=== PATIENT | male | born 1960 | race Caucasian/White ===

== ENCOUNTER 2020-01-08 15:41 | Emergency (ER) | payer BC, SELFPAY ==
[2020-01-08 15:43] VITALS: BP 152/88; PULSE 71; RESP 20; TEMP 35.8; O2SAT 100
--- NOTE | 2020-01-08 16:02 | PC.NURSE ---
RN at bedside. Wounds cleaned with normal saline and gauze at this time. Awaiting ERP to see pt prior to placing any type of dressing.
--- NOTE | 2020-01-08 16:17 | PC.NURSE ---
LIZ Fisher at bedside for assessment.
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
[2020-01-08 17:34] VITALS: BP 146/97; PULSE 61; RESP 20; TEMP 37.1; O2SAT 99
== END 2020-01-08 17:36 | disposition home or self-care (01) ==
PROVIDERS: Emergency Provider Emergency Medicine; PCP Internal Medicine
DX: S01.01XA Laceration without foreign body of scalp, initial encounter (principal); S50.312A Abrasion of left elbow, initial encounter; S80.212A Abrasion, left knee, initial encounter; S40.212A Abrasion of left shoulder, initial encounter; V11.4XXA Pedal cycle driver injured in collision with other pedal cycle in traffic accident, initial encounter
CPT/HCPCS: 12001; 99282

== ENCOUNTER 2020-10-11 10:15 | Outpatient (CLI) | payer BC, SELFPAY ==
--- NOTE | ~2020-10-11 | XR_ITS ---
EXAMINATION: XR_CERV2-3V_CR EXAM DATE: 10/11/2020 10:31 INDICATION: Left neck posterior pain. Surgery in 2015. TECHNIQUE: Cervical spine frontal, lateral, lateral swimmers, and open-mouth odontoid projections. There is no prior study for comparison. FINDINGS: Anterior and interbody fusion C5-7. The other disc heights are maintained. No hardware fra cture or evidence of subsidence. The vertebral bodies are aligned in the AP dimension. No evidence of moderate cervical facet arthropathy and probably mild to moderate uncovertebral joint arthropathy. T he odontoid process is intact. The lateral masses of C1 line up with C2. Prevertebral soft tissue an d pre-dens space are within normal limits. Azygos fissure. IMPRESSION: 1. Mild to moderate cervical arthropathy. 2. Intact C5-7 fusion. Reviewed, dictated and finalized at location A.
== END 2020-10-11 10:16 | disposition home or self-care (01) ==
PROVIDERS: PCP Internal Medicine; Visit Provider Internal Medicine
DX: M54.2 Cervicalgia (principal); M47.812 Spondylosis without myelopathy or radiculopathy, cervical region; Z98.1 Arthrodesis status
CPT/HCPCS: 72040

== ENCOUNTER → 2021-03-18 10:30 | Outpatient (CLI) | payer BC, SELFPAY ==
--- NOTE | ~2021-03-18 | MR_ITS ---
EXAMINATION: MR cervical spine wo con EXAM DATE: 03/18/2021 11:10 INDICATION: Cervical radiculopathy cervical radiculopathy. TECHNIQUE: Multi-sequential, multiplanar MR images of the cervical spine were obtained without contra st. Axial T2, axial T2 MERGE sequence. Sagittal T1, T2, T2 fat saturation images also obtained. Th ere is no prior study for comparison. FINDINGS: Cervical fusion anterior and interbody fusion C5-C7. Mild disc disease C4-5. The vertebral bodies are aligned in the AP dimension. The spinal cord signal intensity and intrinsic morphology is normal. Cervicomedullary junction is normal in appearance. There are no suspicious marrow signal abno rmalities. Paraspinal soft tissue is unremarkable. Level by level evaluation: C2-C3: Disc does not extend beyond the endplate margin. Uncovertebral joint arthropathy: None. Facet joint arthropathy: Moderate right, mild left. Neural foraminal stenosis: No stenosis. Central canal stenosis: No stenosis. C3-C4: There is a minimal diffuse disc bulge. Uncovertebral joint arthropathy: Mild to moderate right, mild left. Facet joint arthropathy: Severe right, moderate left. Neural foraminal stenosis: Moderate right, mild left. Central canal stenosis: No stenosis. C4-C5: There is a mild diffuse disc bulge Uncovertebral joint arthropathy: Mild to moderate bilateral. Facet joint arthropathy: Severe right, moderate to severe left. Neural foraminal stenosis: Mild to moderate right, mild left. Central canal stenosis: No stenosis. C5-C6: This level is fused. Uncovertebral joint arthropathy: Mild bilateral. Facet joint arthropathy: Moderate bilateral. Neural foraminal stenosis: Mild left. Central canal stenosis: No stenosis. C6-C7: This level is fused. Uncovertebral joint arthropathy: Mild to moderate right. Facet joint arthropathy: Mild to moderate bilateral. Neural foraminal stenosis: No stenosis. Central canal stenosis: No stenosis. C7-T1: Disc does not extend beyond the endplate margin. Uncovertebral joint arthropathy: Mild to moderate bilateral. Facet joint arthropathy: Mild bilateral. Neural foraminal stenosis: No stenosis. Central canal stenosis: No stenosis. IMPRESSION: 1. Advanced upper cervical facet arthropathy. 2. Lower cervical fusion. Reviewed, dictated and finalized at location A.
== END ==
PROVIDERS: Visit Provider Nurse Practitioner Adult Health
DX: M54.12 Radiculopathy, cervical region (principal); M12.88 Other specific arthropathies, not elsewhere classified, other specified site; Z98.1 Arthrodesis status
CPT/HCPCS: 72141

== ENCOUNTER 2021-08-19 07:34 | Outpatient (CLI) | payer BC, SELFPAY ==
--- NOTE | ~2021-08-19 | XR_ITS ---
XR hip BI 2V w AP pelvis DATE: 08/19/2021 07:55 INDICATION: Bilateral hip pain, greater on the left TECHNIQUE: AP pelvis. AP and lateral views of each hip. COMPARISON: None FINDINGS: The pubic symphysis and sacroiliac joints are intact. Hip joint spaces are symmetric and re latively preserved. No fracture, dislocation, avascular necrosis or bone destruction of either hip is detected. IMPRESSION: No significant abnormality Reviewed, dictated and finalized at location A. ION HAND IMPRESSION: No significant abnormality
== END 2021-08-19 07:35 | disposition home or self-care (01) ==
LOC: ANHIMG 07:39
PROVIDERS: PCP Internal Medicine; Visit Provider Physician Assistant
DX: M25.559 Pain in unspecified hip (principal)
CPT/HCPCS: 73521

== ENCOUNTER → 2022-02-09 07:29 | Outpatient (CLI) | payer BC, SELFPAY ==
--- NOTE | ~2022-02-09 | XR_ITS ---
EXAMINATION: XR chest 2V 02/09/2022 07:39 INDICATION: Cough. PROCEDURE: 2 view chest COMPARISON: 01/23/2006 FINDINGS: The lungs are clear. The cardiomediastinal silhouette is within normal limits. There are no pleural effusions. There is no pneumothorax suspected. IMPRESSION: 1: NO ACUTE CARDIOPULMONARY DISEASE. Reviewed, dictated and finalized at location A.
== END ==
PROVIDERS: PCP Internal Medicine; Visit Provider Internal Medicine
DX: R05.9 Cough, unspecified (principal)
CPT/HCPCS: 71046

== ENCOUNTER 2022-02-28 14:41 | Outpatient (CLI) | payer BC, SELFPAY ==
--- NOTE | 2022-02-28 14:45 | ECHO_ITS ---
Patient Info Name: Ethel Huston Age: 61 years : 1960 Gender: Male Ht: 70 in Wt: 210 lbs BSA: 2.19 m2 HR: 64 bpm BP: 149 / 94 mmHg Heart Rhythm: Sinus Rhythm Technical Quality: Fair Exam Date: 02/28/2022 3:01 PM Exam Location: [facility] Patient Status: Outpatient Admit Date: 02/28/2022 Staff Ordering Physician: Anival Henley DO Price Checker: Anita Rajput RDCS Attending Provider: Anival Henley DO Referring Physician: Kale BAILEY; Exam Type: CA echo doppler color flow Study Info Indications R53.83 - Other fatigue Complete two-dimensional, color flow and Doppler transthoracic echocardiogram is performed. Summary 1. Complete two-dimensional, color flow and Doppler transthoracic echocardiogram is performed. 2. Left ventricular chamber dimension is normal. 3. Left ventricular systolic function is normal, estimated at 60-65%. 4. The left ventricular diastolic function is normal. 5. E/e' 7 is not elevated. 6. Left atrial chamber dimension is mildly enlarged. 7. Right atrial chamber dimension is mildly enlarged. 8. The mitral valve has mildly calcified annulus. 9. No pulmonary hypertension, estimated pulmonary arterial systolic pressure is 27 mmHg. 10. Dilated inferior vena cava with >50% collapse upon inspiration consistent with elevated right atrial pressure, 10 mmHg. Left Ventricle E/e' 7 is not elevated. Left ventricular chamber dimension is normal. Left ventricular systolic function is normal, estimated at 60-65%. The left ventricular diastolic function is normal. Right Ventricle Right ventricular systolic function is normal and with normal TAPSE 1.9 cm. Right ventricular chamber dimension is normal. Left Atria Left atrial chamber dimension is mildly enlarged. Right Atria Right atrial chamber dimension is mildly enlarged. Aortic Valve The aortic valve is trileaflet. There is no aortic valve stenosis. There is no aortic valve regurgitation. Pulmonic Valve There is no pulmonic regurgitation. Mitral Valve The mitral valve has mildly calcified annulus. There is no mitral valve stenosis. There is no mitral valve regurgitation. Tricuspid Valve There is no tricuspid valve regurgitation. No pulmonary hypertension, estimated pulmonary arterial systolic pressure is 27 mmHg. Pericardium/Pleural There is no pericardial effusion. Inferior Vena Cava Dilated inferior vena cava with >50% collapse upon inspiration consistent with elevated right atrial pressure, 10 mmHg. Aorta The aortic root size at the sinus of Valsalva is normal. Left Ventricular Outflow Tract Name Value Normal LVOT 2D LVOT Diameter 2.0 cm LVOT Doppler LVOT Peak Gradient 5 mmHg LVOT Mean Gradient 2 mmHg LVOT VTI 23 cm LVOT VTI/AV VTI Ratio 0.9 LVOT Stroke Volume 74 ml LVOT CO 4.2 l/min LVOT CI 1.9 l/min/m2 Pulmonic Valve
== END 2022-02-28 14:42 | disposition home or self-care (01) ==
LOC: ANHCARD 14:42
PROVIDERS: PCP Internal Medicine; Visit Provider Internal Medicine
DX: R53.83 Other fatigue (principal); R05.9 Cough, unspecified
CPT/HCPCS: 93306

== ENCOUNTER 2023-01-05 09:06 | Outpatient (CLI) | payer BC, SELFPAY ==
--- NOTE | ~2023-01-05 | CT_ITS ---
EXAMINATION: CT brain wo/w con DATE: 01/05/2023 09:39 INDICATION: Abnormal vision, left eye TECHNIQUE: Computed tomography (CT) of the head was performed without and subsequently with 100 CC Om nipaque 350 intravenous contrast. The mA was adjusted according to patient size. Iterative reconstruc tion technique was employed. Exam dose: 1210.67 mGy-cm total exam DLP. COMPARISON: None FINDINGS: Mild cerebral and cerebellar volume loss. No intracranial mass lesion or hemorrhage or cere brovascular accident is detected. No midline shift or mass effect. There are bilateral carotid siphon internal carotid artery calcifications. There is nonspecific dimin ished attenuation of the cerebral white matter, likely due to chronic small vessel ischemic changes. No subdural or epidural hematoma is detected. Included mastoid air cells and paranasal sinuses are normally developed and aerated. No fracture or bone destruction of the cranial vault is evident. IMPRESSION: Cerebral atherosclerosis and chronic small vessel ischemic changes of cerebral white mat ter No acute intracranial abnormality Reviewed, dictated and finalized at Location A. Reviewed, dictated and finalized at location B. IMPRESSION: Cerebral atherosclerosis and chronic small vessel ischemic changes of cerebral white matter No acute intracranial abnormality
[2023-01-05 09:32] LABS: Estimated Glomerular Filt Rate > 60
== END 2023-01-05 09:07 | disposition home or self-care (01) ==
PROVIDERS: PCP Internal Medicine; Visit Provider Internal Medicine
DX: H53.452 Other localized visual field defect, left eye (principal); I67.2 Cerebral atherosclerosis
CPT/HCPCS: 70470; Q9967

== ENCOUNTER 2023-08-03 14:05 | Outpatient (CLI) | payer BC, SELFPAY ==
--- NOTE | ~2023-08-03 | XR_ITS ---
EXAM: XR knee RT 3V DATE: 08/03/2023 14:27 HISTORY: NON TRAUMA RT KNEE PAIN FOR A FEW WEEKS . COMPARISON: None available. FINDINGS: Normal mineralization. No fracture or dislocation. No lytic or blastic lesion. Minimal med ial compartment and patellofemoral compartment osteophytosis. No erosion or periosteal change. Soft t issues within normal limits. IMPRESSION: Mild bicompartmental osteoarthritis. Reviewed, dictated and finalized at location K. [employer]
== END 2023-08-03 14:06 | disposition home or self-care (01) ==
LOC: ANHIMG 14:08
PROVIDERS: PCP Internal Medicine; Visit Provider Internal Medicine
DX: M17.11 Unilateral primary osteoarthritis, right knee (principal)
CPT/HCPCS: 73562

== ENCOUNTER 2023-11-28 07:53 | Outpatient (CLI) | payer BC, SELFPAY ==
--- NOTE | ~2023-11-28 | XR_ITS ---
Lumbosacral Spine: AP and lateral views Clinical History: Pain Findings: The normal lordotic curve is maintained. There is mild anterior wedging deformity of L1, ag e-indeterminate. Suspect L5 pars interarticularis defects, with 9 mm anterolisthesis of L5 over S1. T here is moderate degenerative disc narrowing at L5-S1. There is moderate facet arthropathy at the low er lumbar spine. The sacroiliac joints are normally outlined. Impression: Suspected bilateral L5 pars interarticularis defects, with 9 mm anterolisthesis of L5 over S1. Minimal L1 compression fracture deformity, age-indeterminate. Reviewed, dictated and finalized at location . Impression: Suspected bilateral L5 pars interarticularis defects, with 9 mm anterolisthesis of L5 over S1. Minimal L1 compression fracture deformity, age-indeterminate.
== END 2023-11-28 07:54 | disposition home or self-care (01) ==
PROVIDERS: PCP Internal Medicine; Visit Provider Internal Medicine
DX: M54.9 Dorsalgia, unspecified (principal)
CPT/HCPCS: 72100

== ENCOUNTER 2023-12-03 01:10 | Day surgery (SDC) | payer BC, SELFPAY ==
[2023-11-15 13:35] VITALS: BMI 29.3
[2023-12-03 06:19] VITALS: BP 135/79; PULSE 79; RESP 20; TEMP 36.2; O2SAT 97
[2023-12-03] MEDS: LACTATED RINGERS 1,000 ML 150 ML IV CONT (06:28)
--- NOTE | 2023-12-03 06:58 | WPDANESEPPF ---
Anes - Initial Pre Proc Eval Procedure: Operation Date: 12/03/23 07:30 Proposed Procedures p Screening Colonoscopy - Wellington Hsieh MD Date/Time: 12/03/23 06:58 Surgeon: Wellington Hsieh MD Pre Op Diagnosis: neoplasm screening Patient Data Age: 63 Gender: M Height: 1.8 m Weight: 92.1 kg Last Vital Signs Temp 36.2 C L 12/03/23 06:19 Pulse 79 12/03/23 06:19 Resp 20 12/03/23 06:19 BP 135/79 12/03/23 06:19 Pulse Ox 97 12/03/23 06:19 O2 Del Method Room Air 12/03/23 06:19 Allergies Allergy/AdvReac Type Severity Reaction Status Date / Time No Known Allergies Allergy Verified 12/03/23 06:18 Home Medications Medication Instructions Recorded Confirmed Type multivitamin,fo-xyqf-gxmnpyjn 1 tablet PO DAILY 01/21/20 11/27/23 History (Complete Multivitamin tablet) omega 2-xow-esk-fish oil 1,200 mg 1 cap PO .qd 01/21/20 11/27/23 History (144 mg-216 mg) capsule (Fish Oil) cholecalciferol (vitamin D3) 25 25 mcg PO DAILY 07/29/21 11/27/23 History mcg (1,000 unit) capsule psyllium husk 0.52 gram capsule 0.52 g PO DAILY 11/28/22 11/27/23 History (Daily Fiber) Patient hx anesthesia problems: none Family hx anesthesia problems: none Results Review: All pre-operative results and documents have been reviewed as part of the pre-operative evaluation. [facility] Past Medical History Medical History Trochanteric bursitis of left hip Surgical History Surgical History History of neck surgery Family History Family History Mother Hypertension Family history of elevated blood lipids Patient's mother is in good health Asthma Father Patient's father is in good health Sibling Patient's sister is in good health Asthma Grandparent Cancer Diabetes mellitus Heart disease Other Family history of allergic disorder Social History Social History Smoking status: Never smoker Second hand tobacco smoke exposure: No Alcohol intake: current Drinks per week: 10 Substance use: never Substance use type: does not use Do You Feel Safe in your Home?: Yes Lack of Transportation: No Lack of Food: Never True Current Housing: I Have Housing Concerned About Future Housing: No Difficulty Paying Gas/Electric Bills: No Difficulty Paying for Meds: No Currently Unemployed: No Education: High School Diploma/GED Difficulty w/ Childcare or Family Care: No Living arrangements: with family Occupation/Education: occupation 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 Informed Consent: The patient's anesthetic plan and its attendant risks and benefits were discussed with the patient/family/POA. Questions were solicited and answers provided to the satisfaction of the patient/family/POA.
--- NOTE | 2023-12-03 07:21 | PM.HPGS ---
History of Present Illness History of Present Illness Consent: Risks, benefits, and alternatives have been discussed and questions answered. Patient agrees to proceed with procedure. Chief complaint: neoplasm screening Narrative: Ethel Huston II is a 63 year old male here for screening colonoscopy, last one 2012 Review of Systems Review of Systems: All systems reviewed & are unremarkable except as noted in HPI and below PMFSH Past Medical History Medical History (Updated 12/03/23 @ 07:22 by Wellington Hsieh MD) Colon cancer screening Trochanteric bursitis of left hip Surgical History Surgical History History of neck surgery Family History Family History Mother Hypertension Family history of elevated blood lipids Patient's mother is in good health Asthma Father Patient's father is in good health Sibling Patient's sister is in good health Asthma Grandparent Cancer Diabetes mellitus Heart disease Other Family history of allergic disorder Social History Social History Smoking status: Never smoker Second hand tobacco smoke exposure: No Alcohol intake: current Drinks per week: 10 Substance use: never Substance use type: does not use Do You Feel Safe in your Home?: Yes Lack of Transportation: No Lack of Food: Never True Current Housing: I Have Housing Concerned About Future Housing: No Difficulty Paying Gas/Electric Bills: No Difficulty Paying for Meds: No Currently Unemployed: No Education: High School Diploma/GED Difficulty w/ Childcare or Family Care: No Living arrangements: with family Occupation/Education: occupation 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 Spiritual care concerns: No Meds Home Medications and Allergies Home Medications Medication Instructions Recorded Confirmed Type multivitamin,qi-vszy-bhqnjkvs 1 tablet PO DAILY 01/21/20 11/27/23 History (Complete Multivitamin tablet) omega 3-vol-bhr-fish oil 1,200 mg 1 cap PO .qd 01/21/20 11/27/23 History (144 mg-216 mg) capsule (Fish Oil) cholecalciferol (vitamin D3) 25 25 mcg PO DAILY 07/29/21 11/27/23 History mcg (1,000 unit) capsule psyllium husk 0.52 gram capsule 0.52 g PO DAILY 11/28/22 11/27/23 History (Daily Fiber) Allergies Allergy/AdvReac Type Severity Reaction Status Date / Time No Known Allergies Allergy Verified 12/03/23 06:18 Vital Signs Vital Signs - 24 hr 12/03/23 06:19 Temperature 97.1 F L Pulse Rate 79 Respiratory Rate 20 Blood Pressure 135/79 Pulse Oximetry 97 Oxygen Delivery Room Air Exam Const: General: comfortable and no acute distress HENMT: Face/Nose/Sinus: Normal nares present Eyes: General: appearance normal, both eyes and all related structures Neck: Neck: no JVD Resp: Auscultation: clear to auscultation bilaterally Cardio: Rate: regular rate Rhythm: regular rhythm GI: Inspection: non-distended GI Palp: Yes Soft to palpation Skin: General skin exam: normal color Neuro: General: gait normal Speech: normal speech Extrem: General: normal to inspection Psych: Mental Status: mental status grossly normal Assessment and Plan Assessment and plan (1) Colon cancer screening: Code(s): Z12.11 - Encounter for screening for malignant neoplasm of colon Status: Acute Assessment and Plan: colonoscopy
[2023-12-03 07:43] VITALS: BP 114/76; PULSE 63; RESP 27; O2SAT 98
[2023-12-03 07:53] VITALS: BP 119/81; PULSE 61; RESP 24; O2SAT 100
[2023-12-03 08:03] VITALS: BP 120/82; PULSE 55; RESP 22; O2SAT 99
== END 2023-12-03 08:18 | disposition home or self-care (01) ==
PROVIDERS: PCP Internal Medicine; Visit Provider Internal Medicine Gastroenterology
PROC: 0DJD8ZZ Inspection of Lower Intestinal Tract, Via Natural or Artificial Opening Endoscopic (ICD-10-PCS; CPT 45378; principal; 2023-12-03 07:30)
DX: Z12.11 Encounter for screening for malignant neoplasm of colon (principal); D12.2 Benign neoplasm of ascending colon; K64.8 Other hemorrhoids
CPT/HCPCS: 45385; 88305; J2001; J2704; J7120

== ENCOUNTER 2024-10-28 08:54 | Outpatient (CLI) | payer BC, SELFPAY ==
--- NOTE | ~2024-10-28 | XR_ITS ---
Clinical Indication: Pain PA and lateral views of the chest: Comparison: 02/09/2022 Findings: The lungs are clear, without evidence of focal consolidation or pleural effusion. Cardiome diastinal silhouette is within normal limits. Bones and soft tissues are unremarkable. Impression: Normal chest. Reviewed, dictated and finalized at location . Impression: Normal chest.
--- OUTSIDE RECORDS SUMMARY | 2024-10-28 09:03 | XMS_ITS | Clinical Summary ---
Author Organization [facility] Address [address] [place] [id number] Care Team Providers Care Upper Tier Name Role Phone None, Provider Primary Care Provider Unavaila ble Social History Tobacco Use Types Packs/Day Years Used Date Smoking Tobacco: Never Assessed Sex and Gender Information Value Date Recorded Sex Assigned at Not on file Legal Sex Male 6:22 PM CDT Gender Identity Not on file Sexual Orientation Not on file Plan of Treatment Health Maintenance Due Date Last Done Comments Colorectal Cancer Screening Colonoscopy (10 Years) 1960 Annual Physical 1965 Hepatitis C 1980 DTaP, Tdap and Td Vaccines ( 1 - Tdap) 1981 Pneumococcal Vaccine: 50+ Years (1 of 1 - PCV) 2012 Zoster Vaccines (1 of 2) 2012 COVID-19 Vaccine (2023-2 5 season) 2024 08/21/2020, 07/24/2020 RSV Immunization or 60+ Years (1 - 1-dose 75+ series) 2037 Meningococcal B Vaccine Aged Out No l onger eligible based on patient's age to complete this topic Meningococcal Vaccine Aged Out No juanito ravindra eligible based on patient's age to complete this topic RSV Immunizations Under 20 Months Aged Out No longer eligible b ased on patient's age to complete this topic Care Teams Upper Tier Relationship Specialty Start Date End Date None, Provider, PCP - General 09/18/20
== END 2024-10-28 08:55 | disposition home or self-care (01) ==
PROVIDERS: PCP Internal Medicine; Visit Provider Internal Medicine
DX: M54.6 Pain in thoracic spine (principal)
CPT/HCPCS: 71046

== ENCOUNTER 2024-10-31 09:04 | Outpatient (CLI) | payer BC, SELFPAY ==
--- NOTE | ~2024-10-31 | US_ITS ---
Renal-Bladder ultrasound Clinical History: Abdominal pain Technique: Real-time sonographic imaging of the kidneys and urinary bladder was performed. Findings: The right kidney measures 9.6 cm in length and the left kidney measures 8.9 cm. There is no hydronephrosis or renal calculus identified. Renal cortical echogenicity is within normal limits. No renal mass lesion is identified. The urinary bladder is moderately distended at the time of this exam. No intraluminal echoes are iden tified. No abnormal wall thickening is seen. Impression: Unremarkable ultrasound of the kidneys and urinary bladder. Reviewed, dictated and finalized at location M. Impression: Unremarkable ultrasound of the kidneys and urinary bladder.
== END 2024-10-31 09:05 | disposition home or self-care (01) ==
LOC: MICIMG 09:05
PROVIDERS: PCP Internal Medicine; Visit Provider Internal Medicine
DX: R10.9 Unspecified abdominal pain (principal)
CPT/HCPCS: 76775

== ENCOUNTER 2025-06-09 22:40 | Emergency (ER) | payer BC, SELFPAY ==
--- NOTE | ~2025-06-09 | XR_ITS ---
Examination: XR chest 1V portable Clinical History: weak dizzy Comparison: 10/28/2024 Technique: Portable AP Findings: Heart size normal. Lungs clear. No acute bony abnormality. IMPRESSION: 1. No acute cardiopulmonary findings given portable technique. Reviewed, dictated and finalized at location R. TENN[employer] PROFESSIONAL
--- NOTE | 2025-06-09 22:46 | ECG_ITS ---
Test Date: 2025-06-09 22:47:46 Measurements Intervals Calvin Rate: 73 P: 20 HI: 169 QRS: 28 QRSD: 102 T: 34 QT: 383 QTc: 423 Interpretive Statements SINUS RHYTHM INCOMPLETE RIGHT BUNDLE BRANCH BLOCK BORDERLINE ST-T WAVE ABNORMALITY- INFERIOR LEADS BASELINE ARTIFACT- I, II, III, AVR, AVL, AVF, V1-V6 BORDERLINE ECG No previous ECG available for comparison Electronically Signed On 06-10-2025 06:56:25 SILK SCREENER by Lew Stephens D.O.
[2025-06-09 22:47] VITALS: BP 92/57; PULSE 73; RESP 16; TEMP 36.5; O2SAT 100
[2025-06-09 22:59] LABS: Hematocrit 45.4 % (42.0-52.0); Hemoglobin 16.5 g/dL (14.0-18.0); Immature Granulocyte Percent A 0.4 % (0-0.5); Lymphocytes Absolute Auto 1.71 K/mm3 (0.9-3.2); Mean Corpuscular HGB Conc 36.3 g/dl (32-36); Mean Corpuscular Hemoglobin 29.7 pg (26-34); Mean Corpuscular Volume 81.7 fl (80-100); Nucleated Red Blood Cells Absolute Auto 0.000 K/mm3 (0.0-0.012); Nucleated Red Blood Cells Perc 0.0 % (0.0-0.2); Platelet Count Result 205 k/mm3 (150-375); Red Blood Count 5.56 M/mm3 (4.6-6.20); White Blood Count 9.1 K/mm3 (4.5-10.0)
[2025-06-09 23:09] LABS: Alanine Aminotransferase 25 U/L (6-50); Albumin Level 4.1 g/dL (3.5-5.1); Alkaline Phosphatase 108 U/L (38-126); Anion Gap 10 mmol/L (4-12); Aspartate Amino Transferase 31 U/L (17-59); Bilirubin,Total 0.7 mg/dL (0.2-1.3); Blood Urea Nitrogen 10 mg/dL (9-20); Calcium 9.3 mg/dL (8.4-10.2); Carbon Dioxide 17 mmol/L (22-30); Chloride 99 mmol/L (98-107); Estimated Glomerular Filt Rate > 60; Glucose 147 mg/dL (65-110); Potassium 3.7 mmol/L (3.4-5.0); Sodium 126 mmol/L (137-145); Total Protein 7.2 g/dL (6.3-8.2)
[2025-06-09 23:36] LABS: Influenza A QL RT-PCR Positive (Negative); Influenza B QL RT-PCR Negative (Negative); RSV RNA, RT-PCR Negative (Negative); SARS-CoV-2 RNA PCR Negative (Negative)
[2025-06-10] VITALS (23 sets, daily range): BP systolic 138–155; BP diastolic 72–84; PULSE 62–89; RESP 13–27; TEMP 36.6; O2SAT 95–100
[2025-06-10] MEDS: SODIUM CHLORIDE 0.9% IV 1,000 ML 999 ML IV CONT (00:33)
[2025-06-10 00:39] LABS: Add Urine Microscopic? YES; Appearance Urine Clear (Clear); Glucose Urine UA Negative (Negative); Leukocyte Esterase Ur Trace LEU/UL (Negative); Nitrate Urine Negative (Negative); Specific Grav Ur 1.010 (1.001-1.035)
--- NOTE | 2025-06-10 03:47 | ED.GENADULT ---
HPI - General Adult General Chief complaint: Weakness Stated complaint: dizziness / flu like sx Time Seen by Provider: 06/09/25 22:56 History of Present Illness HPI narrative: 64-year-old male presenting with concerns for URI and weakness. Patient states his symptoms started Sunday with a sore throat and postnasal drip and have worsened since then. He states that today he got up to use the bathroom and became very lightheaded. He also states that he is very sleep deprived. Denies any significant past medical history as well as fever/chills, nausea/vomiting/diarrhea, numbness/tingling, chest pain/shortness of breath. Related Data Home Medications ?Medication ?Instructions ?Recorded ?Confirmed ?Last Taken ?Type multivitamin,[id number]-zsyn-[id number] 1 tablet PO DAILY 01/21/20 10/13/24 Unknown History (Complete Multivitamin tablet) omega 8-cqd-hkz-fish oil 1,200 mg 1 cap PO .qd 01/21/20 10/13/24 Unknown History (144 mg-216 mg) capsule (Fish Oil) cholecalciferol (vitamin D3) 25 25 mcg PO DAILY 07/29/21 10/13/24 Unknown History mcg (1,000 unit) capsule psyllium husk 0.52 gram capsule 0.52 g PO DAILY 11/28/22 10/13/24 Unknown History (Daily Fiber) meloxicam 15 mg tablet 15 mg PO DAILY 04/21/25 04/21/25 Unknown History Allergies Allergy/AdvReac Type Severity Reaction Status Date / Time No Known Allergies Allergy Verified 06/09/25 22:41 Review of Systems Review of Systems: All systems reviewed & are unremarkable except as noted in HPI and below PMFSH Past Medical History Medical History BMI 29.0-29.9,adult Colon cancer screening Trochanteric bursitis of left hip Surgical History Surgical History History of neck surgery Family History Family History Mother Hypertension Family history of elevated blood lipids Patient's mother is in good health Asthma Father Patient's father is in good health Sibling Patient's sister is in good health Asthma Grandparent Cancer Diabetes mellitus Heart disease Other Family history of allergic disorder Social History Social History Smoking status: Never smoker Second hand tobacco smoke exposure: No Alcohol intake: current Drinks per week: 10 Substance use: never Substance use type: does not use Lack of Transportation: No Lack of Food: Never True Current Housing: I Have Housing Concerned About Future Housing: No Difficulty Paying Gas/Electric Bills: No Difficulty Paying for Meds: No Currently Unemployed: No Education: High School Diploma/GED Difficulty w/ Childcare or Family Care: No Living arrangements: with family Occupation/Education: occupation 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 HEAD: Normocephalic, atraumatic. EYES: PERRLA and EOMI. ENT: Nares clear, no rhinorrhea or epistaxis. Mucous membranes moist. Oropharynx without tonsillar hypertrophy exudate or other lesions. Bilateral TMs pearly oliver non-bulging NECK: Supple. No adenopathy or masses. No carotid bruits or JVD CHEST: Clear to auscultation. No respiratory distress. No wheezes rales or rhonchi HEART: Regular rate and rhythm. No murmur heard. Normal peripheral pulses. ABDOMEN: Soft, nontender, nondistended, normal active bowel sounds. EXTREMITIES: Normal range of motion. No edema. SKIN: Warm, dry, no rash. NEURO: No focal deficits. Alert and oriented x3. PSYCH: Normal mood and affect Course Vital Signs Vital signs: Vital Signs Temperature 97.7 F 06/09/25 22:47 Pulse Rate 73 06/09/25 22:47 Respiratory Rate 16 06/09/25 22:47 Blood Pressure 92/57 L 06/09/25 22:47 Pulse Oximetry 100 06/09/25 22:47 Oxygen Delivery Room Air 06/09/25 22:47 Temperature 97.8 F 06/10/25 00:25 Pulse Rate 85 06/10/25 02:13 Respiratory Rate 20 06/10/25 00:25 Blood Pressure 140/77 06/10/25 02:13 Pulse Oximetry 97 06/10/25 00:25 Oxygen Delivery Room Air 06/09/25 22:47 MDM MDM Narrative Medical decision making narrative: 64-year-old male presenting with concerns for URI and weakness. Patient states his symptoms started Sunday with a sore throat and postnasal drip and have worsened since then. He states that today he got up to use the bathroom and became very lightheaded. He also states that he is very sleep deprived. Denies any significant past medical history as well as fever/chills, nausea/vomiting/diarrhea, numbness/tingling, chest pain/shortness of breath. Patient presented with generalized weakness and was found to be positive for influenza A. Laboratory evaluation was notable for hyponatremia with sodium of 126, suspected to be related to decreased oral intake in the setting of acute viral illness. Patient was treated with 1 L of IV fluids with significant improvement in symptoms. On reassessment, patient reported feeling improved and was able to ambulate with a steady gait. No focal neurologic deficits or other concerning findings were identified. Negative orthostatic vital signs. CXR without acute abnormalities. Given clinical improvement, stable vital signs, and reassuring exam, patient deemed appropriate for outpatient management. Patient was counseled extensively on increasing oral intake with electrolyte containing fluids and advised to have close outpatient follow-up for repeat laboratory testing. Patient verbalized understanding and was comfortable with going home. Strict return precautions were discussed. Differential Diagnosis Differential Diagnosis: Differential diagnostic considerations for upper respiratory infection include upper respiratory infection, croup, otitis media, sinusitis, viral infection, bronchitis, influenza, pharyngitis, strep, uvulitis. Medical Records I have reviewed the following patient records and this information was taken into consideration when formulating the assessment and plan.: previous labs, previous ER visits, previous hospitalizations and previous clinic visits Lab Data MDM Lab Attestation statement: I personally reviewed the patient's lab results. 06/09/25 22:52 06/09/25 22:52 Labs: Lab Results 06/09/25 06/10/25 Range/Units 22:52 00:27 WBC 9.1 (4.5-10.0) K/mm3 RBC 5.56 (4.6-6.20) M/mm3 Hgb 16.5 (14.0-18.0) g/dL Hct 45.4 (42.0-52.0) % MCV 81.7 (80-100) fl MCH 29.7 (26-34) pg MCHC 36.3 H (32-36) g/dl RDW 13.0 (11.5-14.5) % Plt Count 205 (150-375) k/mm3 MPV 8.2 (7.4-10.4) fl Immature Gran % (Auto) 0.4 (0-0.5) % Neut % (Auto) 68.0 (45.5-73.1) % Lymph % (Auto) 18.8 (18.3-44.2) % [place] % (Auto) 11.6 H (2.6-8.5) % Eos % (Auto) 0.7 (0-4.4) % Baso % (Auto) 0.5 (0.2-1.2) % Lymph # (Auto) 1.71 (0.9-3.2) K/mm3 [place] # (Auto) 1.1 H (0.1-0.6) K/mm3 Eos # (Auto) 0.1 (0-0.3) K/mm3 Baso # (Auto) 0.1 (0.0-0.1) K/mm3 Abs Immat Gran (auto) 0.04 H (0.00-0.031) K/mm3 Absolute Neuts (auto) 6.2 (1.3-6.7) K/mm3 Absolute Nucleated RBC 0.000 (0.0-0.012) K/mm3 Nucleated RBC % 0.0 (0.0-0.2) % Sodium 126 L (137-145) mmol/L Potassium 3.7 (3.4-5.0) mmol/L Chloride 99 (98-107) mmol/L Carbon Dioxide 17 L (22-30) mmol/L Anion Gap 10 (4-12) mmol/L BUN 10 (9-20) mg/dL Creatinine 0.92 (0.7-1.3) mg/dL Estim Creat Clear Calc Not Reportable Estimated GFR > 60 (59 - ) Glucose 147 H (65-110) mg/dL Calcium 9.3 (8.4-10.2) mg/dL Total Bilirubin 0.7 (0.2-1.3) mg/dL AST 31 (17-59) U/L ALT 25 (6-50) U/L Alkaline Phosphatase 108 (38-126) U/L Total Protein 7.2 (6.3-8.2) g/dL Albumin 4.1 (3.5-5.1) g/dL Urine Color Yellow (Yellow) Urine Appearance Clear (Clear) Urine pH 6.5 (5.0-9.0) Ur Specific [place] 1.010 (1.001-1.035) Urine Protein Negative (Negative) mg/dL Urine Glucose (UA) Negative (Negative) mg/dL Urine Ketones 3+ H (Negative) mg/dL Ur Blood (Man) Trace (Negative) Urine Nitrate Negative (Negative) Urine Bilirubin Negative (Negative) Urine Urobilinogen 0.2 (<2.0) mg/dL Leukocyte Esterase Rfl Trace H (Negative) YUKO/UL Urine RBC 3-5 H (0-2) /hpf Urine WBC 0-5 (0-3) /hpf Ur Squamous Epith Cells None seen (Few) /hpf Urine Bacteria None seen /hpf Urine Casts 3-5 Influenza A (RT-PCR) Positive A (Negative) Influenza B (RT-PCR) Negative (Negative) RSV (RT-PCR) Negative (Negative) SARS-CoV-2 RNA (RT-PCR) Negative (Negative) ECG Data EKG #1: ECG completion date: 06/09/25 ECG completion time: 22:47 normal rate, sinus rhythm and no acute changes Discharge Plan Discharge Clinical Impression: Influenza A, Hyponatremia Patient Disposition: Home Condition: Stable Instructions: Influenza (ED) Additional Instructions: Patient has been advised to remain well-hydrated, get plenty of rest, no work or school for several days. Take Tylenol or Motrin [id number] for pain as needed. Return to the emergency department if you experience fever, chest pain, shortness of breath, abdominal pain with nausea and vomiting, weakness, numbness/tingling, or any other symptoms that are concerning to you. Hydrate, especially with plenty of electrolytes. Follow up with primary care doctor for follow-up labs and any other general concerns. Patient Language: [place] Prescriptions: No Action omega 0-ewb-shv-fish oil [Fish Oil] 1,200 (144-216) mg capsule 1 cap PO .qd Complete Multivitamin Tablet 1 tablet PO DAILY cholecalciferol (vitamin D3) 25 mcg (1,000 unit) capsule 25 mcg PO DAILY psyllium husk [Daily Fiber] 0.52 gram capsule 0.52 g PO DAILY meloxicam 15 mg tablet 15 mg PO DAILY Follow-up/Referrals: Zen Sanchez, [Primary Care Provider, Internal Medicine]
== END 2025-06-10 03:20 | disposition home or self-care (01) ==
PROVIDERS: Emergency Medicine; PCP Internal Medicine
DX: J10.1 Influenza due to other identified influenza virus with other respiratory manifestations (principal); Z20.822 Contact with and (suspected) exposure to COVID-19; E87.1 Hypo-osmolality and hyponatremia; I45.10 Unspecified right bundle-branch block; R94.31 Abnormal electrocardiogram [ECG] [EKG]
CPT/HCPCS: 36415; 71045; 80053; 81001; 85025; 87637; 93005; 96360; 99284; J7030